=== PATIENT | female | born 1965 | race Caucasian/White ===

== ENCOUNTER 2022-05-04 09:02 | Outpatient (REF) | payer OTHER, SELFPAY ==
--- NOTE | ~2022-05-04 | MM_ITS ---
EXAMINATION: MM SCREENING DIGITAL BREAST TOMOSYNTHESIS, BILATERAL CLINICAL INFORMATION: Screening. Asymptomatic. The lifetime risk of breast cancer based on the Tyrer-Cuzick Model is 7.2%. COMPARISON: Mammography: None. Addendum will be made if and when previous studies from [facility] are made available. TECHNIQUE: Digital breast tomosynthesis was performed in both the craniocaudal and mediolateral oblique views along with computer-aided detection (CAD). Synthesized 2D images were generated from the tomosynthesis. FINDINGS: There are scattered areas of fibroglandular density (ACR BI-RADS breast composition Category b). No suspicious dominant mass or suspicious grouping of microcalcifications is identified. There are a few bilateral sub-3 mm well-circumscribed densities which appear benign. Cardiac recorder seen about the inferior medial aspect of the left breast. MM/MM tomosynthesis screening BI IMPRESSION: No mammographic evidence of malignancy. ASSESSMENT: BI-RADS 2: Benign RECOMMENDATION: Routine annual mammography screening. Comparison with prior studies when made available. This patient's information was entered into a reminder system with a target due date for their next mammogram.
== END 2022-05-04 09:03 | disposition home or self-care (01) ==
LOC: HO.MAMMO 09:02
PROVIDERS: PCP Internal Medicine; Visit Provider Internal Medicine
DX: Z12.31 Encounter for screening mammogram for malignant neoplasm of breast (principal)
CPT/HCPCS: 77063; 77067

== ENCOUNTER 2024-09-01 12:54 | Outpatient (REF) | payer OTHER, SELFPAY ==
--- OUTSIDE RECORDS SUMMARY | 2024-05-05 06:00 | XMS_ITS | Encounter Summary ---
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 potential for weight loss. Avoiding Contrave and Qysmia d/t hx CVA and hypertension. Tolerating tirzepatide (Zepbound) with weight loss noted. Will titrate to effective dose. Encouraged to continue with LSMs. Continue to f/u with nutrition. Has evaluation with acupuncture and massage therapy to address pain so she is able to increase activity. --> INCREASE tirzepatide (Zepbound) 5mg once weekly. Follow-up: 6 weeks ([facility]) Time Spent: 20 minutes PBM PharmD Pharmacotherapy Rem V12: PHARMACIST INTERVENTIONS: OBESITY/WEIGHT MANAGEMENT Medication Intervention(s) Adjust dose or frequency of current medication Medication reconciliation (changes to active VA and non-VA medication lists to reconcile differences) Changes to medication lists made Update dose, frequency, duration and/or dosage form of medication /danny Randolph PharmD Clinical Pharmacy Practitioner Signed: 05/05/2024 10:28 05/05/2024 ADDENDUM STATUS: COMPLETED Will ask [facility]SA to please schedule patient for: [X] SPR [facility] PHARM PACT 1 RTC order placed. Appointent Length: 30 minutes. Thank you! /danny Randolph PharmD Clinical Pharmacy Practitioner Signed: 05/05/2024 10:29 Receipt Acknowledged By: 05/08/2024 13:20 /danny [employer] 05/06/2024 ADDENDUM STATUS: COMPLETED LM ON /es/ GINGER REYES [employer] Signed: 05/06/2024 15:13 05/08/2024 ADDENDUM STATUS: COMPLETED APPT SCHEDULED WITH [facility] /maria del carmen/ GINGER [employer] Signed: 05/08/2024 13:20 BE RANDOLPH
--- OUTSIDE RECORDS SUMMARY | 2024-09-01 13:37 | XMS_ITS | Encounter Summary ---
Author Organization [facility] Address [address] [facility] [facility] [address] [place] [address] Phone Care Team Providers Care Landscaper Name Role Phone Nancy Carr DRY KILN WORKER Unavailable [phone] Pramod Whitehead MD Primary Care Provider [phone] Encounter Details Date Type Department Care Team (Late st Contact Info) Description 10/30/2022 Procedure Pass [facility] Endoscopy Admitting Dept Virtual Department [address] [place] [address] Social History Tobacco Use Types Packs/Day Years Used Date Smoking Tobacco: Former Cigarettes Q uit: 01/31/2022 Smokeless Tobacco: Never Alcohol Use Standard Drinks/Week Comments Never 0 (1 standard drink = 0.6 oz pur e alcohol) Education Answer Date Recorded Are you interested in more education? Not on lilian e 06/09/2022 Are you concerned about learning? Not on file 06/09/2022 No 06/09/2022 No 06/09/2022 Digital Access Answer Date Recorded No 07/10/2022 No 07/10/2022 Reliable internet access at home? Not on file 07/10/2022 Device with a working camera? Not on file Intimate Partner Violence Answer Date R ecorded Are you denied basic needs s uch as food, clothing, or medical care? No 10/30/2022 In the past 12 months have y ou been in a relationship with a person who hurts, threatens, or tries to control you? No 10/30/2022 Are you denied basic needs s uch as food, clothing, or medical care? No 10/30/2022 In the past 12 months have y ou been in a relationship with a person who hurts, threatens, or tries to control you? No 10/30/2022 Comments Unknown Sex and Gender Information Value Date Recorded Sex Assigned at Not on file Legal Sex Female 2:10 PM EST Gender Identity Not on file Sexual Orientation Not on file documented as of this encounter Plan of Treatment Not on file documented as of this encounter Visit Diagnoses Not on filedocumented in this encounter Care Teams Landscaper Relationship Specialty Start Date End Date Praomd Whitehead MD [address] [place] [address] PCP - General Internal Medicine 10/19/22 Nancy Carr NP Historical LMR Provider 12/02/16 documented as of this encounter Additional Source Comments The information contained in this document represents components of the legal health record. It is not the complete legal health record.[facility]
--- OUTSIDE RECORDS SUMMARY | 2024-09-01 13:37 | XMS_ITS | Clinical Summary ---
Author Organization [facility] [address] [place] [address] [place] [address] Phone Care Team Providers Care Campaign Developer Name Role Phone Latasha Earl MD Primary Care Provider [phone] Social History Tobacco Use Types Packs/Day Years Used Date Smoking Tobacco: Never Assessed Comments Unknown Sex and Gender Information Value Date Recorded Sex Assigned at Not on file Legal Sex Female 10:28 AM EST Gender Identity Not on file Sexual Orientation Not on file Plan of Treatment Upcoming Encounters Date Type Department Care Team (Late st Contact Info) Description 09/02/2024 1:30 PM EDT Office Visit Urogynecology [address] [phone] Maryann Min MD [address] [place] [address] [address] [place] [address] Health Maintenance Due Date Last Done Comments Breast Cancer Screening 1967 DTaP,Tdap,and Td Vaccines (1 - Tdap) 1986 Hepatitis B Vaccines (1 of 3 - 19+ 3-dose series) 1986 Cervical Cancer Screening: P ap Smear 1988 Pneumococcal Vaccine: 50+ Ye ars (1 of 1 - PCV) 2017 Zoster Vaccines (1 of 2) 2017 COVID-19 Vaccine ( - 2023-2 5 season) 2023 Depression Screening 02/13/2024 Cholesterol Screening (Lipid Panel) 05/27/2024 Colorectal Cancer Screening: Colonoscopy 05/27/2024 HIV Screening 05/27/2024 Hepatitis C Screening 05/27/2024 Hypertension/CHF/CAD Annual BMP Blood Test 05/27/2024 Social Influencers of Health Screening 05/27/2024 Influenza Vaccine (#1) 2024 HIB Vaccines Aged Out No longer eligi ble based on patient's age to complete this topic HPV Vaccines Aged Out No longer eligi ble based on patient's age to complete this topic Hepatitis A Vaccines Aged Out No long er eligible based on patient's age to complete this topic IPV Vaccines Aged Out No longer eligi ble based on patient's age to complete this topic MMR Vaccines Aged Out No longer eligi ble based on patient's age to complete this topic Meningococcal ACWY Vaccine Aged Out N o longer eligible based on patient's age to complete this topic Meningococcal B Vaccine Aged Out No l onger eligible based on patient's age to complete this topic RSV Immunization Patients Un tonny 20 months Aged Out No longer eligible b ased on patient's age to complete this topic Varicella Vaccines Aged Out No longer eligible based on patient's age to complete this topic Insurance [facility] Care Teams Campaign Developer Relationship Specialty Start Date End Date Latasha Earl MD [address] [place] [address] PCP - General 04/28/22
--- OUTSIDE RECORDS SUMMARY | 2024-09-01 13:37 | XMS_ITS ---
Author Name Jeanne Gutierrez Address Unknown Organization [facility] Care Team Providers Care Manager Integration Name Role Phone Unavailable Primary Care Physician Unavailab le History Of Present Illness 1. This is a 59 year old female who is following up for actinic keratosis on the right medial superior chest. She was seen on May 16, 2024, at which time she was prescribed Mupirocin 2 % topical ointment (Apply thin layer to area of biopsy site on chest once daily until resolution) and the following treatment recommendations were given: Plan: :Rx - topical Mupirocin 2% ointment to biopsy site. The patient presents for further evaluation and management and focused visit. 2. This is a 59 year old female who is following up for seborrheic dermatitis (Other seborrheic dermatitis) on the mid-occipital scalp. She was seen on May 08, 2024, at which time she was prescribed Ketoconazole 2 % shampoo BIW (Apply to scalp in shower and lather for 5-10 minutes before washing out. Alternate with OTC medicated shampoo.) and Fluocinolone 0.01 % topical solution (Apply twice daily to scalp for itch and scale, use up to 2 weeks on, then take 1 week off. Repeat as needed.) and the following treatment recommendations were given: Plan: :Refill given of:Ketoconazole 2% topical shampooFluocinolone 1% topical solution. The patient presents for further evaluation and management.Today the patient reports: Modifying factors: unchanged by therapy.The patient followed the treatmentplan as directed.Interval History: Pt states scalp is very itchy and flaky Allergies, Adverse Reactions, Alerts Substance RxNorm Reaction(s) Severity Status Start Da te adhesive tape Rash unspecified active 04/13 Medications Medication Generic Name RxNorm Strength Strength Unit Route Dose Dose Form Frequency Date Started Date Ended Status Indication Sig fluocinolon e fluocino lone 4425609 0.01 % Topica l solut ion 07/26/20 23 active Appl y twic e agustín y to scal p for itch and scal e, use up to 2 week s on, then take 1 week off. Repe at as need ed. ketoconazol e ketocona zole 653312 2 % Topica l shamp oo BIW 09/07/19 23 active Appl y to scal p in show er and lath er for 5-10 bijal timmy befo re wash ing out. Alte rnat e with OTC medi phillip d sham poo. metronidazo le metronid azole 768309 0.75 % Topica l gel 05/09/19 25 active Appl y thin laye r twic e a day to face mupirocin mupiroci n 941741 2 % Topica l ointm ent 05/17/19 25 active Appl y thin laye r to area of biop sy site on ches t once agustín y unti l reso luti on tacrolimus tacrolim us 049167 0.1 % Topica l ointm ent 09/07/19 23 active Appl y AM and PM to rash of the face for up to 6 week s triamcinolo ne acetonide triamcin olone acetonid e 3285623 0.1 % Topica l cream 07/19/19 24 active Appl y AM and PM betw een eyeb rows and arou nd nose when need ed spar ingl y do not use intermediate atenolol atenolol 095802 25 mg Oral table t active benazepril- hydrochloro thiazide benazepr il-hydro chloroth iazide 672213 10-12.5 mg Oral table t active doxycycline hyclate doxycycl ine hyclate 8792538 100 mg Oral capsu le 05/09/19 25 active Take one caps ule by mout h ever y 12 hour s for 4 week s, then take one caps ule by mout h once agustín y for 4 week s doxycycline monohydrate doxycycl ine monohydr ate 5446188 100 mg Oral capsu le 08/30/19 25 active Take one caps ule by mout h twic e a day x 4 week s lorazepam lorazepa m 946113 1 mg Oral table t active Plavix clopidog rel 394369 75 mg Oral 1 table t QD active clobetasol clobetas ol 258757 0.05 % Scalp solut ion 08/30/19 25 active Appl y to scal p twic e agustín y for 2 week s on, 1 week off. May repe at cycl e as need ed Zepbound tirzepat tye (weight loss) 1479761 2.5 mg/0.5 mL Subcut aneous pen injec tor active Problems Problem Code Type Status Date of Diagnosis Date of Resolution Actinic keratosis (disorder) (SN OMED) Diagnosis active 08/29/2024 Seborrheic dermatitis (disorder) 18066006(SNO MED) Diagnosis active 08/29/2024 Abscess of axilla (disorder) 05377928(SNO MED) Diagnosis active 08/29/2024 Perioral dermatitis (disorder) 328052487(SN OMED) Diagnosis active 08/29/2024 Disorder of pigmentation (disorder) 038555915(SN OMED) Diagnosis active 08/29/2024 Actinic keratosis (disorder) (SN OMED) Diagnosis active 05/16/2024 Inflamed seborrheic keratosis (disorder) 408618609(SN OMED) Diagnosis active 05/16/2024 Hemangioma of skin and subcutaneous tissue (disorder) 617684846(SN OMED) Diagnosis active 05/16/2024 Neoplasm of uncertain behavior of skin (disorder) 10771679(SNO MED) Diagnosis active 05/08/2024 Seborrheic dermatitis (disorder) 39770961(SNO MED) Diagnosis active 05/08/2024 Perioral dermatitis (disorder) 996677819(SN OMED) Diagnosis active 05/08/2024 Inflamed seborrheic keratosis (disorder) 637404127(SN OMED) Diagnosis active 05/08/2024 Hypertrophic condition of skin (disorder) 49042904(SNO MED) Diagnosis active 05/08/2024 Melanocytic nevus (disorder) 006073124(SN OMED) Diagnosis active 05/08/2024 Benign neoplasm of skin of face (disorder) 28694711(SNO MED) Diagnosis active 05/08/2024 Hemangioma of skin and subcutaneous tissue (disorder) 614265753(SN OMED) Diagnosis active 05/08/2024 Disorder of pigmentation (disorder) 128716022(SN OMED) Diagnosis active 05/08/2024 Seborrheic keratosis (disorder) 427654433(SN OMED) Diagnosis active 05/08/2024 Erythema of skin (disorder) 298866269(SN OMED) Diagnosis active 05/08/2024 Family history of malignant neoplasm (situation) 856936137(SN OMED) Diagnosis active 05/08/2024 Patient encounter status (finding) 977479075(SN OMED) Diagnosis active 05/08/2024 Seborrheic keratosis (disorder) 068789173(SN OMED) Diagnosis active 07/19/2023 Seborrheic dermatitis (disorder) 24646992(SNO MED) Diagnosis active 07/19/2023 Family history of malignant neoplasm (situation) 300838139(SN OMED) Diagnosis active 07/19/2023 Seborrheic dermatitis (disorder) 62901555(SNO MED) Diagnosis active 09/06/2022 Inflammatory dermatosis (disorder) 110826789(SN OMED) Diagnosis active 09/06/2022 Melanocytic nevus (disorder) 985171238(SN OMED) Diagnosis active 09/06/2022 Benign neoplasm of skin of face (disorder) 31730606(SNO MED) Diagnosis active 09/06/2022 Seborrheic keratosis (disorder) 427156944(SN OMED) Diagnosis active 09/06/2022 Disorder of pigmentation (disorder) 856724750(SN OMED) Diagnosis active 09/06/2022 Hemangioma of skin and subcutaneous tissue (disorder) 889544788(SN OMED) Diagnosis active 09/06/2022 Erythema of skin (disorder) 362145004(SN OMED) Diagnosis active 09/06/2022 Family history of malignant neoplasm (situation) 364151096(SN OMED) Diagnosis active 09/06/2022 Patient encounter status (finding) 737083858(SN OMED) Diagnosis active 09/06/2022 Anxiety disorder (disorder) 999354341(SN OMED) Problem active Cerebrovascular accident (disorder) 523183317(SN OMED) Problem active History of hypertension (situation) 606082304(SN OMED) Problem active Psoriasis (disorder) 3340267(SNOM ED) Problem active History of skin disorder (situation) 155120789(SN OMED) Problem active Results No data Encounters Service provided at [facility], [address] [place] [address], [address], [place], [place] [id number]. Office phonenumber is [phone]. Office fax number is [phone]. Encounter Diagnosis Location Date / Time Type Actinic Keratosis (L57.0)Guillaume orrheic Dermatitis (L21.8)Abscess (L02.411)Perioral Dermatitis (L71.0)Lentigines (L81.4) [facility] 08/29/2024 14:00:00 [place] [address] Reason For Referral No data Procedures Procedure Date Destruction of premalignant skin lesion (procedure) 08/29/2024 12:00 am UTC Cryotherapy of skin lesion with liquid n itrogen (procedure) 05/16/2024 12:00 am UTC Cryotherapy of skin lesion with liquid n itrogen (procedure) 05/08/2024 12:00 am UTC Excision of skin tag (procedure) 025 12:00 am UTC Shave biopsy (procedure) 05/08/2024 12:0 0 am UTC Cryotherapy of skin lesion with liquid n itrogen (procedure) 07/19/2023 12:00 am UTC Documentation of past medical history (p rocedure) Documentation of past medical history (p rocedure) Documentation of past medical history (p rocedure) Documentation of past medical history (p rocedure) Documentation of past medical history (p rocedure) Documentation of past medica l history (procedure) Loop recorder Review Of Systems Provider reviewed on Aug 29, 2024.A focused review of systems was performed including Integumentary.No Problems With Healing And No Problems With Scarring (hypertrophic Or Keloid). Assessment 1.Actinic Keratosis - Biopsy provenLiquid Nitrogen: right medial superior chest; Duration of freezethaw-cycle (seconds) - 10; Number of freeze-thaw Cycles - 2 freeze-thaw cycles.2.Seborrheic DermatitisCounselingPrescription Medication Management: Plan - :Patient reports intermittent flare-ups. Shehas been washing her hairs 7-10 days. Discontinue: Fluocinolone 1% topical solutionRx:Clobetasol 0.05% scalp solutionContinue: Ketoconazole 2% topical shampoo ( advised to use more frequently);.Prescription: clobetasol 0.05 % scalp solution Scalp3.AbscessCounselingPrescription: doxycycline monohydrate 100 mg capsule POPrescription Medication Management: Plan - :Rx today:1. Doxycycline [id number] bid x 4 weeks;.4.Perioral Dermatitis, Status: Well ControlledCounselingPrescription Medication Management: face; face; Plan - :May continue as needed: Metronidazole 0.75% topical gel bid to face ;.5.LentiginesCounselingRecommendations: Recommendations (Free Text) - OTC Differin gel at night. Plan of Care Future visit for 08/29/2024 - Follow up for: Skin Check - (as previously scheduled) Code Detail Instructions [id number] doxycycline monohydrate 100 mg c apsule Take one capsule by mouth twice a day x 4 weeks 612657 clobetasol 0.05 % scalp solution Apply to scalp twice daily for 2 weeks on, 1 week off. May repeat cycle as needed 228660 mupirocin 2 % topical ointment A pply thin layer to area of biopsy site on chest once daily until resolution 9746217 doxycycline hyclate 100 mg capsu le Take one capsule by mouth every 12 hours for 4 weeks, then take one capsule by mouth once daily for 4 weeks 198213 metronidazole 0.75 % topical gel Apply thin layer twice a day to face 820480 ketoconazole 2 % shampoo Apply t o scalp in shower and lather for 5-10 minutes before washing out. Alternate with OTC medicated shampoo. 7857879 fluocinolone 0.01 % topical solu tion Apply twice daily to scalp for itch and scale, use up to 2 weeks on, then take 1 week off. Repeat as needed. 2045942 triamcinolone aceton tye 0.1 % topical cream Apply AM and PM between eyebrows and around nose when needed sparingly do not use continuous churn buttermaker 816610 tacrolimus 0.1 % topical ointmen t Apply AM and PM to rash of the face for up to 6 weeks 5032896 fluocinolone 0.01 % topical solu tion Apply twice daily to scalp for itch and scale, use up to 2 weeks on, then take 1 week off. Repeat as needed. 982511 ketoconazole 2 % shampoo Apply t o scalp in shower and lather for 5-10 minutes before washing out. Alternate with OTC medicated shampoo. Instructions * I counseled the patient regarding the following:Skin care: Emollients, shampoos with tar, selenium or zinc pyrithione can improve seborrheic dermatitis.Expectations: Seborrheic Dermatitis is chronic in nature with periods of remissions and flares. Flares can be triggered by stress.Contact office if: Seborrheic dermatitis worsens, or fails to improve despite several months of treatment.I recommended the following: ShampoosTopical SteroidsThe following medication counseling was provided:Topical Ketoconazole Counseling: Patient counseled that this medication may cause skin irritation or allergic reactions. In the event of skin irritation, the patient was advised to reduce the amount of the drug applied or use it less frequently. The patient verbalized understanding of the proper use and possible adverse effects of ketoconazole. All of the patient's questions and concerns were addressed.I di scussed with the patient that prolonged use of topical steroids can result in the increased appearance of superficial blood vessels (telangiectasias), lightening (hypopigmentation) and thinning of the skin (atrophy). Patient understands to avoid using high potency steroids in skin folds, the groin or the face. The patient verbalized understanding of the proper use and possible adverse effects of topical steroids. All of the patient's questions and concerns were addressed. * I counseled the patient regarding the following:Skin care: Abscesses need to undergo I&D for definitive treatment. Warm compresses and oral antibiotics are also recommended.Expectations: Abscess are large collections of pus underneath the skin. Lesions should be cultured to rule out MRSA.Contact office if: Abscess fails to resolve despite treatment, or if patient develops fevers or chills.Thefollowing medication counseling was provided:Doxycycline Counseling: Patient counseled regarding possible photosensitivity and increased risk for sunburn. Patient instructed to avoid sunlight, if possible. When exposed to sunlight, patients should wear protective clothing, sunglasses, and sunscreen. The patient was instructed to call the office immediately if the following severe adverse effects occur: hearing changes, easy bruising/bleeding, severe headache, or vision changes. The patient verbalized understanding of the proper use and possible adverse effects of doxycycline. All of the patient's questions and concerns were addressed. Patient understands to avoid while on therapy due to potential defects. * I counseled the patient regarding the following:Skin care: Patient instructed to minimize the use of cosmetics, wear broad spectrum sunscreen, and use non- comedogenic products.Expectations: Perioral Dermatitis is chronic. Flares can be triggered by: cosmetics, topical steroids, flourinated toothpastes, and wind and sun exposure.Contact office if: Perioral Dermatitis worsens or fails to improve despite months of treatment.I recommended the following: MoisturizersThe following medication counseling was provided:Topical Metronidazole Counseling: Patient counseled regarding possible burning, sting ing, redness, metallic taste in the mouth, nausea, headache or allergic reactions. The patient was instructed to call the office immediately if side effects occur. All of the patient's questions and concerns were addressed. * I counseled the patient regarding the following:Skin Care: Lentigines can resolve with broad spectrum sunscreen, sun avoidance, bleaching creams, retinoids, chemical peels and laser.Expectations: Lentigines are benign pigmented lesions that occur on sun-exposed and sun-damaged skin. They are easilytreatable.I recommended the following: Broad Spectrum Sunscreen SPF 30+Topical RetinoidsThe following medication counseling was provided:Retinoid Counseling: Patient advised to apply a pea-sized amount only at bedtime and wait 30 minutes after washing their face before applying. If too drying, patie nt may add a non-comedogenic moisturizer. The patient verbalized understanding of the proper use and possible adverse effects of retinoids. All of the patient's questions and concerns were addressed. Social History Code Activity Start Date End Date 7707626 (SNOMED) Former smoker 05/08/1994 02/01/2022 Sex female Sexual orientation Unspecified Gender identity Unspecified Vital Signs No data
== END 2024-09-01 12:55 | disposition home or self-care (01) ==
LOC: HO.MAMMO 12:54
PROVIDERS: PCP General Practice; Visit Provider General Practice
DX: Z12.31 Encounter for screening mammogram for malignant neoplasm of breast (principal)
CPT/HCPCS: 77063; 77067

== ENCOUNTER → 2024-09-01 13:00 | Outpatient (BNV) | payer OTHER, SELFPAY | PROVIDERS: PCP General Practice; Visit Provider Radiology Body Imaging | DX: Z12.31 Encounter for screening mammogram for malignant neoplasm of breast (principal) | CPT/HCPCS: 77063; 77067 ==